=== PATIENT | male | born 1950 | race Caucasian/White ===

== ENCOUNTER 2018-05-29 09:52 | Inpatient (IN) | payer MEDICARE ==
[2018-05-29] MEDS ORDERED: SODIUM CHLORIDE 0.9% 500 ML 500 ML IV STA (10:04)
[2018-05-29] MEDS ORDERED: NALOXONE 0.4 MG/ML 1 ML VIAL IV PRN (10:17)
[2018-05-29] MEDS ORDERED: fentaNYL (PF) 50 MCG/ML 2 ML AMP ONE (10:19)
--- NOTE | 2018-05-29 10:22 | ED ---
General Adult HPI - General Chief complaint: Syncope Stated complaint: syncope, facial injury Time Seen by Provider: 05/29/18 10:04 Source: patient, RN notes reviewed Mode of arrival: wheelchair Limitations: no limitations - History of Present Illness Initial comments: 60-year-old male presenting with chest discomfort, syncopal episode with head trauma. Patient is noted to be bradycardic in triage, immediately brought into room for evaluation. Patient is diaphoretic, pale, mildly hypotensive. EKG reveals acute ST segment elevation PR. computer laboratory technician is activated. Patient does endorse some chest discomfort prior to syncopal episode. He is having minimal pain at the time my evaluation. Denies back pain. Denies abdominal pain. Denies nausea or vomiting. Denies focal numbness or weakness. He is alert and oriented 3. - Related Data Home Medications Medication Instructions Recorded Confirmed No Known Home Medications 11/14/14 05/29/18 Allergies Allergy/AdvReac Type Severity Reaction Status Date / Time No Known Allergies Allergy Verified 05/29/18 10:11 Review of Systems ROS Statement: Those systems with pertinent positive or pertinent negative responses have been documented in the HPI. ROS Other: All systems not noted in ROS Statement are negative. Past Medical History Past Medical History: No Reported History History of Any Multi-Drug Resistant Organisms: None Reported Past Surgical History: No Surgical Hx Reported, Orthopedic Surgery Additional Past Surgical History / Comment(s): L hand Past Psychological History: No Psychological Hx Reported Smoking Status: Former smoker Past Alcohol Use History: Occasional Past Drug Use History: None Reported General Exam Limitations: no limitations General appearance: alert, lethargic Head exam: Present: atraumatic, normocephalic, other (Facial abrasion just below the right eye) Eye exam: Present: normal appearance, PERRL, EOMI Respiratory exam: Present: normal lung sounds bilaterally. Absent: respiratory distress, wheezes Cardiovascular Exam: Present: normal rhythm, bradycardia GI/Abdominal exam: Present: soft. Absent: distended, tenderness, guarding Extremities exam: Present: normal inspection, normal capillary refill, other ( Distal pulses symmetric, faint) Neurological exam: Present: alert, oriented X3, CN II-XII intact. Absent: motor sensory deficit Psychiatric exam: Present: normal affect, normal mood Skin exam: Present: warm, intact, diaphoretic, pallor. Absent: cyanosis Course Vital Signs 05/29/18 09:54 Temperature 97.7 F Pulse Rate 46 L Respiratory 18 Rate Blood Pressure 134/84 O2 Sat by Pulse 96 Oximetry EKG Findings - EKG Comments: EKG Findings:: EKG: Sinus bradycardia, rate 42, LDH, ST segment elevation in the 1, aVL, and V3, V4, V5 and 6, diffuse ST segment depression, VT interval 180 , QRS duration 106, QTC 365, acute ST segment elevation PR. Medical Decision Making - Medical Decision Making 60-year-old male syncope, ST segment elevation PR. Patient given aspirin and heparin, fluid bolus, taken immediately to the [facility]. Dr. Giron is able to evaluate the patient emergency department. All imaging, and labs are pending. Disposition Clinical Impression: STEMI (ST elevation myocardial infarction) Disposition: ADMITTED IP TO THIS HOSP Condition: Serious Is patient prescribed a controlled substance at d/c from ED?: No Referrals: Dalton Sahu MD [Primary Care Provider] - 1-2 days Decision to Admit Reason: Admit from EC Decision Date: 05/29/18 Decision Time: 10:22
[2018-05-29 10:28] LABS: Basophils # (A) 0.1 k/uL (0-0.2); Basophils % (A) 1 %; Eosinophils # (A) 0.2 k/uL (0-0.7); Eosinophils % (A) 2 %; HCT 45.7 % (39.0-53.0); HGB 14.8 gm/dL (13.0-17.5); Lymphocytes # (A) 2.3 k/uL (1.0-4.8); Lymphocytes % (A) 23 %; MCH 31.2 pg (25.0-35.0); MCHC 32.5 g/dL (31.0-37.0); Mean Platelet Volume 7.4; Monocytes # (A) 0.7 k/uL (0-1.0); Monocytes % (A) 7 %; Neutrophils # (A) 6.7 k/uL (1.3-7.7); Neutrophils % (A) 66 %; Platelet Count 254 k/uL (150-450); RBC 4.76 m/uL (4.30-5.90); RDW 13.1 % (11.5-15.5); WBC 10.1 k/uL (3.8-10.6)
[2018-05-29 10:28] LABS: Glucose,Whole Blood 181 mg/dL (75-99)
[2018-05-29] MEDS ORDERED: fentaNYL (PF) 50 MCG/ML 2 ML AMP IVP ONE (10:30)
[2018-05-29] MEDS ORDERED: LIDOCAINE 1% INJ 10MG/ML (20 ML MDV) SQ ONE (10:33)
[2018-05-29] MEDS ORDERED: HEPARIN SODIUM,PORCINE 5,000 UNIT/ML 1 ML VIAL IV ONE (10:36)
[2018-05-29] MEDS ORDERED: ASPIRIN 81 MG PO STA (10:36)
--- NOTE | 2018-05-29 10:37 | CONS ---
CONSULTATION Mr. Baez is a 68-year-old male with no prior cardiac history who presented to the emergency room after syncopal episode and chest discomfort while exercising. He had a laceration on the face. His EKG revealed ST-segment elevation. The patient has no prior documented history of coronary artery disease. He has occasional episodes of chest discomfort at times, but has not been persistent and no recent syncope. He denies any significant dyspnea on exertion. No palpitation. No PND, orthopnea. No peripheral edema. His coronary risk factors are negative for smoking, hypertension, or diabetes. His lipid profile is not available to me. REVIEW OF SYSTEMS: RESPIRATORY SYSTEM: No recent wheezing. No cough. No history of obstructive lung disease. GI SYSTEM: No recent GI bleed. No peptic ulcer disease. SYSTEM: No dysuria or hematuria. NERVOUS SYSTEM: No stroke or seizure. PHYSICAL EXAMINATION: He is a 68-year-old male, alert, oriented, in no apparent distress. Heart rate in the 50s. Blood pressure 120/70, laceration noted on the right cheek. EYES: Sclerae nonicteric. NECK: Good upstroke, no bruit, no jugular venous distention. LUNGS: Clear to auscultation. HEART: Regular rate and rhythm, S1, S2. No S3, plus S4. Systolic murmur at the base. No diastolic murmur. ABDOMEN: Soft, nontender. EXTREMITIES: No edema. Intact pulses. EKG reveals sinus mechanism, rate [address]-segment elevation in lead 1 aVL and lead V4 and V5 with ST-segment depression in the inferior anterior leads consistent with anterolateral myocardial infarction. IMPRESSION: Status post acute anterolateral myocardial infarction with syncope, probably related either to bradycardia or ventricular tachycardia. RECOMMENDATION: I recommend proceeding with emergent cardiac catheterization. The rationale behind the procedures, risks and complication were discussed with the patient and his and are in full understanding and agreement. Thank you for this consult. Will follow with you. MMODL / IJN: [id number] /
[2018-05-29 10:38] LABS: ALT 36 U/L (21-72); AST 22 U/L (17-59); Alkaline Phosphatase 89 U/L (38-126); Anion Gap 10 mmol/L; Blood Urea Nitrogen 18 mg/dL (9-20); Calcium 10.1 mg/dL (8.4-10.2); Carbon Dioxide 26 mmol/L (22-30); Chloride 104 mmol/L (98-107); Glucose 183 mg/dL (74-99); Magnesium 1.7 mg/dL (1.6-2.3); Potassium 4.3 mmol/L (3.5-5.1); Sodium 140 mmol/L (137-145); Total Bilirubin 0.9 mg/dL (0.2-1.3)
[2018-05-29] MEDS ORDERED: TICAGRELOR 90 MG TAB ONE (10:39)
[2018-05-29 10:40] LABS: INR 0.9 (<1.2); Partial Thromboplastin Time 22.5 sec (22.0-30.0); Prothrombin Time 9.9 sec (9.0-12.0)
[2018-05-29] MEDS ORDERED: TICAGRELOR 90 MG TAB PO ONE (10:41)
[2018-05-29] MEDS ORDERED: BIVALIRUDIN BOLUS 250 MG/50 ML IV ONE (10:41)
[2018-05-29] MEDS ORDERED: IV FLUID CONTINUATION 1,000 ML IV ONE (10:43)
[2018-05-29] MEDS ORDERED: BIVALIRUDIN 250 MG in SODIUM CHLORIDE 0.9% 50 ML IV ONE ×2 (10:43→11:38)
[2018-05-29] MEDS ORDERED: IOPAMIDOL-370 100ML BTL INJ ONE ×3 (10:46→11:53)
[2018-05-29 10:56] LABS: Creatine Kinase 84 U/L (55-170)
[2018-05-29 11:09] LABS: Troponin I <0.012 ng/mL (0.000-0.034)
[2018-05-29] MEDS ORDERED: NITROGLYCERIN 1000MCG/10ML SYRINGE INTRACORON ONE (11:27)
[2018-05-29] MEDS ORDERED: SODIUM CHLORIDE 0.9% 1,000 ML IV ONE (12:10)
[2018-05-29] MEDS ORDERED: RX INFO: IV CONTRAST WAS GIVEN 1 EACH MISC MISCELLANE PRN (12:11)
[2018-05-29] MEDS ORDERED: ATROPINE SULFATE 0.1 MG/ML 10ML SYRINGE IV PRN (12:11)
[2018-05-29] MEDS ORDERED: MAG HYDROX/AL HYDROX/SIMETH 30 ML CUP PO PRN (12:11)
[2018-05-29] MEDS ORDERED: NITROGLYCERIN SL TABS 0.4 MG TAB SUBLINGUAL PRN (12:11)
[2018-05-29] MEDS ORDERED: ZOLPIDEM 5 MG TAB PO PRN (12:11)
[2018-05-29] MEDS ORDERED: SODIUM CHLORIDE 0.9% 1,000 ML IV SCH (12:15)
--- NOTE | 2018-05-29 12:28 | CC ---
CARDIAC CATHETERIZATION REPORT Mr. Baez is a 68-year-old male with no prior documented coronary artery disease who today while exercising, had a syncopal episode associated with chest discomfort, came into the emergency room and was found to have ST-segment elevation involving the anterolateral leads. In view of that, recommendation made regarding cardiac catheterization. The procedure, risks and complications were discussed with the patient who is in full understanding and agreement. PROCEDURE: Patient was brought to dental laboratory manager in the semi-sedated state after receiving fentanyl and Benadryl and achieving moderate conscious sedated state. Using Xylocaine anesthesia and Seldinger technique, a 6-Zambian sheath was introduced in the right femoral artery. Left heart catheterization was performed using 6-Zambian FR4 guiding catheter after cannulating the left main and obtaining images of the left coronary system, angioplasty and stenting of the left circumflex first obtuse marginal branch was done. Following that, images of the right coronary artery was performed using a 6-Zambian 4 bend right and left Cathryn catheter. Multiple images of the right coronary artery were performed. Following that, a 6-Zambian tight pigtail catheter was introduced in the left ventricle and pressures were calculated. Following that, catheter and sheath were removed. Hemostasis was obtained with deployment of an Angio-Seal. There was no immediate complication. FINDINGS: FLUOROSCOPY: There was severe calcification involving the coronary arteries. LEFT MAIN: This is a short-size vessel, bifurcating into left circumflex, left anterior descending artery. Left main coronary artery has no evidence of high-grade stenosis. LEFT ANTERIOR DESCENDING ARTERY: This is a calcified vessel, giving rise to a proximal diagonal branch. The left anterior descending artery and proximal segment has a calcified area of about 40% plaque. The rest of the vessel has no high-grade stenosis. LEFT CIRCUMFLEX: This is a nondominant vessel giving rise to 2 obtuse marginal branches. The first obtuse marginal branch is subtotally occluded with slow antegrade flow and the proximal left circumflex prior to the takeoff of the obtuse marginal branch has a 30% plaque. RIGHT CORONARY ARTERY: This is a large dominant vessel, bifurcating into PDA and posterolateral segment branches. The right coronary artery in mid segment has an 80% to 90% plaque. The rest of the vessel has diffuse intimal disease without any evidence of high-grade stenosis. LEFT VENTRICULOGRAM: Left ventriculogram was not performed. HEMODYNAMICS: There was no gradient across the aortic valve. The left ventricular end- diastolic pressure was 24 mmHg. CONCLUSION: 1. Calcified coronary arteries. 2. Subtotally occluded first obtuse marginal branch. 3. Critical stenosis in the mid right coronary artery. 4. Mild to moderate disease in the LAD. RECOMMENDATION: In view of finding anatomy, I recommend proceeding with angioplasty and stenting of the obtuse marginal branch of the right coronary artery. The procedures, risks and complication were discussed with the patient who is in full understanding and agreement. MMODL / IJN: [id number] /
--- NOTE | 2018-05-29 12:37 | LTR ---
DATE OF SERVICE: 05/29/2017 RE: Ryan Baez Dear Dr. Sahu; I had the pleasure to perform cardiac catheterization and coronary angioplasty and stenting on Mr. Baez at [facility] on May 29 and a full copy of the procedure note will be forwarded to you. In brief, he was found to have critical stenosis involving the first obtuse marginal branch and mid right coronary artery, underwent successful stenting of both vessels. I am hopeful that this procedure will stabilize his status and thank you again for allowing me to participate in this patient's care. Please feel free to call for any questions. Sincerely yours, Anjelica Giron MD MMKAYLAL / SMILEYN: [id number] /
--- NOTE | 2018-05-29 12:37 | PTCA ---
PERCUTANEOUSTRANS CORORONARY ANGIOGRAPHY Mr. Baez is a 68-year-old male with no prior documented history of coronary artery disease who had an episode of syncope while on the treadmill today with chest discomfort and ST-segment elevation involving the anterolateral leads. He underwent cardiac catheterization, was found to have a subtotally occluded first obtuse marginal branch. Recommendation was made regarding angioplasty and stenting. The procedure, risks and complication were discussed with the patient who is in full understanding and agreement. PROCEDURE: Using the 6-Occitan FR4 guiding catheter, attempt to advance the 0.014 balanced medium weight J-wire across the lesion were unsuccessful. That wire was removed and a whisper 0.014 J-wire was advanced and positioned distally. Attempt to advance a Trek 1.58 and 1.2 eight mm balloon were unsuccessful. The balloon was removed and attempt to advance a 1.5 x 6 mm Sprinter balloon were unsuccessful. The balloon was removed and a Fine Cross catheter was advanced across the lesion, then the wire was exchanged through the Fine Cross to a 0.014 mailman. Subsequently, the Fine Cross catheter was removed and a 1.2 x 8 mm Trek balloon was advanced and multiple inflations at 10 atmospheres were done. Following that, the balloon was removed and a 2.0 x 12 mm Trek balloon was advanced and one inflation at 10 atmospheres was done. Following that, the balloon was removed and a 2.5 x 18 mm Xience Arlene stent was deployed, postdilated at 16 atmospheres. After the last inflation, after appropriate wait, the balloon and the guidewire were withdrawn back in the guiding catheter. Images were obtained and repeated. Those images reveal stable successful stenting. At that point, the guiding catheter, the balloon and the guidewire were removed, subsequently and after obtaining images of the right coronary artery using a 6-Occitan FR4 guiding catheter, the right coronary ostium was cannulated and the BMW 0.014 J-wire was advanced and positioned distal right coronary artery. Subsequently, the 2.0 x 12 mm Trek balloon was advanced and one inflation at 10 atmospheres was done. Following that, the balloon was removed and a whisper 0.014 whisper J-wire was advanced and positioned next to the first one in a ross fashion. Subsequently a 2.5 x 18 mm Xience Arlene stent was advanced, deployed and post dilated at 16 atmospheres. After the last inflation, after appropriate wait, the balloon and the guidewire were withdrawn back in the guiding catheter. Images were obtained and repeated. Those images reveal stable successful stenting. At that point, the guiding catheter, the balloon and the guidewire were removed. Left ventricular end- diastolic pressure was calculated using the pigtail catheter. Subsequently, catheter and sheath were removed. Hemostasis was obtained with deployment of an Angio-Seal. There was no immediate complication. Patient is returned to his room in stable condition. Of note, the patient received Angiomax per protocol as well as oral loading dose of Brilinta. RESULTS: 1. Successful stenting of the first obtuse marginal branch with reduction of stenosis from 99% to 0%. 2. Successful stenting of the mid right coronary artery with reduction of stenosis from 85% to 0%. RECOMMENDATION: Patient will be continued on aspirin, Brilinta, RAJIV inhibitor, and statin. The importance of dual antiplatelet treatment were discussed with the patient and his family who are in full understanding and agreement. Duration of the procedure: 82 minutes. MMKAYLAL / SMILEYN: [id number] /
--- NOTE | 2018-05-29 14:05 | XR ---
EXAMINATION TYPE: XR chest 1V portable DATE OF EXAM: 05/29/2018 COMPARISON: Pain INDICATION: Pain TECHNIQUE: Frontal view of the chest is obtained. FINDINGS: The heart size is normal. The pulmonary vasculature is normal. The lungs are clear. EKG leads overlie the chest. IMPRESSION: 1. No acute pulmonary process.
--- NOTE | 2018-05-29 14:29 | CT ---
EXAMINATION TYPE: CT brain w con DATE OF EXAM: 05/29/2018 COMPARISON: HISTORY: syncope and fall today CT DLP: 862.5 mGycm Automated exposure control for dose reduction was used. CONTRAST: CT scan of the head is performed with IV Contrast, patient injected with 270 mL of Isovue 370. FINDINGS: There is no abnormal enhancing mass or midline shift identified. The ventricles and sulci are within normal limits in size. The globes are intact and the visualized sinuses are clear. IMPRESSION: Negative contrast enhanced head CT exam.
[2018-05-29 16:57] LABS: Glucose,Whole Blood 153 mg/dL (75-99)
--- NOTE | 2018-05-29 17:34 | P.HPIM ---
History of Present Illness H&P Date: 05/29/18 Chief Complaint: Chest pain This is a 68-year-old pleasant gentleman patient of Dr. Sahu. He has underlying history of renal calculi, less than by Dr. Sahu in June 2017, no prior history of CAD in the past hyperlipidemia, hyperglycemia, osteoarthritis, BPH without lower tract symptomatology, admitted to the emergency room secondary to chest discomfort while exercising. Patient also has syncopal event at that time, she says he sustained laceration of face, in emergency room his EKG showed ST segment elevation, patient denies any previous history of [place] in the past no history of seizures no history of syncope in the past. Patient has no PND or orthopnea no edema. In the emergency room EKG shows sinus mechanism heart rate [address] segment elevation in leads 1 and aVL and leads V4 V5 with ST segment depression in the inferior anterior leads consistent with anterolateral Myocardial faction. He was pale, diaphoretic, hypotensive, Patient was subsequently directed to the cardiac lab for emergent cardiac catheterization, Dr. Giron proceeded with the coronary intervention Findings of cardiac Shows occluded first obtuse marginal branch, requiring stenting of a 99% occluded first obtuse marginal branch with reduction of stenosis from 99% to 0, also successful stenting of the mid right coronary artery from 85% stenosis to 0 patient was placed on aspirin during that RAJIV inhibitor and statin patient currently is transferred to ICU procedure done on Dr. Giron Review of Systems Constitutional: Reports as per HPI, Denies anorexia, Denies chills, Denies chronic headaches, Denies chronic pain, Denies daytime sleepiness, Denies fatigue, Denies fever, Denies lethargy, Denies malaise, Denies night sweats, Denies poor appetite, Denies sweats, Denies weakness, Denies weight gain, Denies weight loss Ears, nose, mouth and throat: Reports as per HPI, Denies ant. neck pain, Denies bleeding gums, Denies dental pain, Denies dysphagia, Denies epistaxis, Denies headache, Denies hoarseness, Denies mouth pain, Denies nasal congestion, Denies nasal discharge, Denies neck fullness/pressure, Denies neck lump, Denies nose pain, Denies odynophagia, Denies post-nasal drip, Denies sinus pain, Denies sinus pressure, Denies swelling in mouth, Denies swelling in throat, Denies sore throat, Denies vertigo, Denies voice changes Cardiovascular: Reports as per HPI, Reports chest pain, Reports syncope Respiratory: Reports as per HPI, Denies congestion, Denies cough, Denies cough with sputum, Denies dyspnea, Denies excessive sputum, Denies hemoptysis, Denies home oxygen, Denies pain, Denies pain on inspiration, Denies pleurisy, Denies respiratory infections, Denies sleep apnea, Denies snoring, Denies wheezing Gastrointestinal: Reports as per HPI, Denies abdominal pain, Denies belching, Denies bloating, Denies BRBPR, Denies change in bowel habits, Denies coffee ground emesis, Denies constipation, Denies diarrhea, Denies dyspepsia, Denies early satiety, Denies excessive gas, Denies heartburn, Denies hematemesis, Denies hematochezia, Denies indigestion, Denies jaundice, Denies lactose intolerance, Denies loss of appetite, Denies melena, Denies nausea, Denies vomiting Genitourinary: Reports as per HPI, Denies decreased libido, Denies difficulties fathering child, Denies discharge, Denies dysuria, Denies erectile dysfunction, Denies flank pain, Denies genital pain, Denies genital sores, Denies hematuria, Denies impotence, Denies incontinence, Denies kidney stones, Denies nocturia, Denies polyuria, Denies testicular lump, Denies testicular pain, Denies urinary frequency, Denies urinary hesitancy, Denies urinary retention Musculoskeletal: Reports as per HPI, Denies arm numbness/tingling, Denies atrophy, Denies fractures, Denies frequent falls, Denies gait dysfunction, Denies hot joints, Denies leg numbness/tingling, Denies limitation of motion, Denies loss of height, Denies low back pain, Denies morning stiffness, Denies muscle cramps, Denies muscle weakness, Denies myalgias, Denies neck pain, Denies neck stiffness, Denies prior amputations, Denies redness of joints, Denies shooting arm pain, Denies shooting leg pain Integumentary: Reports as per HPI, Denies acne, Denies boils, Denies brittle nails, Denies change in hair/nails, Denies color changes, Denies darkening of skin, Denies depigmentation, Denies dryness, Denies foot/leg ulcers, Denies growths, Denies hirsutism, Denies lesions, Denies onychomycosis, Denies pruritus , Denies rash, Denies sores, Denies striae, Denies unusual bruising, Denies wounds Neurological: Reports as per HPI, Denies aphasia, Denies ataxia, Denies balance difficulties, Denies burning pain, Denies change in mentation, Denies change in smell/taste, Denies change in speech, Denies confusion, Denies convulsions, Denies double vision, Denies gait dysfunction, Denies head injury, Denies headaches, Denies hearing difficulties, Denies lack of coordination, Denies loss of vision, Denies memory loss, Denies migraines, Denies motor disturbance, Denies numbness, Denies paralysis, Denies paresthesias, Denies seizures, Denies sensory deficit, Denies spasticity, Denies syncope, Denies tic, Denies tingling , Denies transient paralysis, Denies tremors, Denies vertigo, Denies weakness, Denies visual changes Psychiatric: Reports as per HPI, Denies anhedonia, Denies anxiety, Denies anxiety attacks, Denies change in appetite, Denies change in libido, Denies change in sleep habits, Denies confusion, Denies depression, Denies difficulty concentrating, Denies disorientation, Denies hallucinations, Denies hopelessness , Denies hypersomnia, Denies insomnia, Denies irritability, Denies memory loss, Denies mood swings, Denies paranoia, Denies sadness/tearfulness, Denies sleep disturbances, Denies suicidal ideation Endocrine: Reports as per HPI, Denies cold intolerance, Denies deepening of the voice, Denies excessive sweating, Denies excessive thirst, Denies fatigue, Denies flushing, Denies heat intolerance, Denies high blood sugars, Denies increase in ring/shoe/hat size, Denies low blood sugars, Denies nocturia, Denies palpitations, Denies polydipsia, Denies polyphagia, Denies polyuria, Denies proptosis, Denies recent glucocorticoid use, Denies thyroid mass, Denies weight change Hematologic/Lymphatic: Reports as per HPI, Denies easy bleeding, Denies easy bruising, Denies lymphadenopathy, Denies lymphedema, Denies thrombophilia Allergic/Immunologic: Reports as per HPI Past Medical History Past Medical History: No Reported History Additional Past Medical History / Comment(s): nephrolithiasis bph, elevated bp without htn, hyperglycemia History of Any Multi-Drug Resistant Organisms: None Reported Past Surgical History: No Surgical Hx Reported, Orthopedic Surgery Additional Past Surgical History / Comment(s): L hand Past Psychological History: No Psychological Hx Reported Smoking Status: Former smoker Past Alcohol Use History: Occasional Past Drug Use History: None Reported - Past Family History Father Additional Family Medical History / Comment(s): Cabg Mother Family Medical History: Diabetes Mellitus Brother(s) Family Medical History: Coronary Artery Disease (CAD) Additional Family Medical History / Comment(s): heart stent Medications and Allergies Home Medications Medication Instructions Recorded Confirmed Type No Known Home Medications 11/14/14 05/29/18 History Allergies Allergy/AdvReac Type Severity Reaction Status Date / Time No Known Allergies Allergy Verified 05/29/18 10:11 Physical Exam Vitals: Vital Signs Temp Pulse Pulse Resp BP BP Pulse Ox 05/29/18 16:45 84 14 138/79 96 05/29/18 16:00 82 19 143/79 95 05/29/18 15:11 65 17 150/83 05/29/18 14:41 66 16 150/84 96 05/29/18 14:15 73 16 150/83 05/29/18 13:33 73 16 168/94 05/29/18 13:00 75 18 152/89 97 05/29/18 12:45 65 18 148/78 97 05/29/18 12:30 60 16 152/75 97 05/29/18 12:15 58 L 18 167/81 97 05/29/18 09:54 97.7 F 46 L 18 134/84 96 Intake and Output 05/29/18 05/29/18 05/29/18 06:59 14:59 22:59 Intake Total 746.1 100 Output Total 400 Balance 346.1 100 Intake: IV 746.1 Intake, IV Titration 100 Amount Sodium Chloride 0.9% 1, 100 000 ml @ 100 mls/hr IV . Q10H [facility] Rx#:[id number] Output: Urine 400 Other: Weight 81.647 kg - Constitutional General appearance: average body habitus, cooperative, no acute distress - EENT Eyes: anicteric sclerae, EOMI, dentition normal, normal appearance ENT: hearing grossly normal, NA/AT, normal oropharynx - Neck Neck: normal ROM - Respiratory Respiratory: bilateral: CTA, negative: diminished, dullness, rales - Cardiovascular Rhythm: regular Heart sounds: normal: S1, S2 Abnormal Heart Sounds: no systolic murmur, no diastolic murmur, no rub, no S3 Gallop, no S4 Gallop, no click, no other - Gastrointestinal General gastrointestinal: normal bowel sounds, soft - Integumentary Integumentary: normal, normal turgor - Neurologic Neurologic: CNII-XII intact - Musculoskeletal Musculoskeletal: gait normal, generalized weakness, strength equal bilaterally - Psychiatric Psychiatric: A&O x's 3, appropriate affect, intact judgment & insight Results CBC & Chem 7: 05/30/18 04:12 05/30/18 04:12 Labs: Abnormal Lab Results - Last 24 Hours (Table) 05/29/18 05/29/18 05/29/18 Range/Units 10:10 10:12 16:45 Glucose 183 H (74-99) mg/dL POC Glucose (mg/dL) 181 H 153 H (75-99) mg/dL Laboratory Results WBC 10.1 k/uL (3.8-10.6) 05/29/18 10:10 RBC 4.76 m/uL (4.30-5.90) 05/29/18 10:10 Hgb 14.8 gm/dL (13.0-17.5) 05/29/18 10:10 Hct 45.7 % (39.0-53.0) 05/29/18 10:10 MCV 96.0 fL (80.0-100.0) 05/29/18 10:10 MCH 31.2 pg (25.0-35.0) 05/29/18 10:10 MCHC 32.5 g/dL (31.0-37.0) 05/29/18 10:10 RDW 13.1 % (11.5-15.5) 05/29/18 10:10 Plt Count 254 k/uL (150-450) 05/29/18 10:10 Neutrophils % 66 % 05/29/18 10:10 Lymphocytes % 23 % 05/29/18 10:10 Monocytes % 7 % 05/29/18 10:10 Eosinophils % 2 % 05/29/18 10:10 Basophils % 1 % 05/29/18 10:10 Neutrophils # 6.7 k/uL (1.3-7.7) 05/29/18 10:10 Lymphocytes # 2.3 k/uL (1.0-4.8) 05/29/18 10:10 Monocytes # 0.7 k/uL (0-1.0) 05/29/18 10:10 Eosinophils # 0.2 k/uL (0-0.7) 05/29/18 10:10 Basophils # 0.1 k/uL (0-0.2) 05/29/18 10:10 PT 9.9 sec (9.0-12.0) 05/29/18 10:10 INR 0.9 (<1.2) 05/29/18 10:10 APTT 22.5 sec (22.0-30.0) 05/29/18 10:10 Sodium 140 mmol/L (137-145) 05/29/18 10:10 Potassium 4.3 mmol/L (3.5-5.1) 05/29/18 10:10 Chloride 104 mmol/L (98-107) 05/29/18 10:10 Carbon Dioxide 26 mmol/L (22-30) 05/29/18 10:10 Anion Gap 10 mmol/L 05/29/18 10:10 BUN 18 mg/dL (9-20) 05/29/18 10:10 Creatinine 0.96 mg/dL (0.66-1.25) 05/29/18 10:10 Est GFR (CKD-EPI)AfAm >90 (>60 ml/min/1.73 sqM) 05/29/18 10:10 Est GFR (CKD-EPI)NonAf 82 (>60 ml/min/1.73 sqM) 05/29/18 10:10 Glucose 183 mg/dL (74-99) H 05/29/18 10:10 POC Glucose (mg/dL) 153 mg/dL (75-99) H 05/29/18 16:45 POC Glu [employer] ID 05/29/18 16:45 Calcium 10.1 mg/dL (8.4-10.2) 05/29/18 10:10 Magnesium 1.7 mg/dL (1.6-2.3) 05/29/18 10:10 Total Bilirubin 0.9 mg/dL (0.2-1.3) 05/29/18 10:10 AST 22 U/L (17-59) 05/29/18 10:10 ALT 36 U/L (21-72) 05/29/18 10:10 Alkaline Phosphatase 89 U/L (38-126) 05/29/18 10:10 Total Creatine Kinase 84 U/L (55-170) 05/29/18 10:10 CK-MB (CK-2) 1.0 ng/mL (0.0-2.4) 05/29/18 10:10 CK-MB (CK-2) Rel Index 1.2 05/29/18 10:10 Troponin I <0.012 ng/mL (0.000-0.034) 05/29/18 10:10 Total Protein 7.0 g/dL (6.3-8.2) 05/29/18 10:10 Albumin 4.0 g/dL (3.5-5.0) 05/29/18 10:10 Thrombosis Risk Factor Assmnt - DVT/VTE Prophylaxis DVT/VTE Prophylaxis: Pharmacologic Prophylaxis ordered - Choose All That Apply Each Factor Represents 1 point: Acute [place] Each Risk Factor Represents 2 Points: Age 61-74 years Thrombosis Risk Factor Assessment Total Risk Factor Score: 3 Thrombosis Risk Factor Assessment Level: Moderate Risk Assessment and Plan Plan: 1. Acute STEMI involving anterolateral leads with occluded mid RCA, 85% and first obtuse marginal branch 99% with successful stenting on both vessels, patient is currently on aspirin. Intact, statin and RAJIV inhibitor, patient has to be on dual antiplatelets and risk reduction to include hyperglycemia that was noted 2. Hyperglycemia, possibly with diabetes or new-onset diabetes, unrecognized at this time, hemoglobin A1c to be obtained, Accu-Cheks before meals and at bedtime with coverage sliding scale 3. Hypertension, syncopal 2.5 mg twice a day initiated 4. BPH without lower tract symptomatology, monitor for urinary retention 5. History of nephrolithiasis asymptomatic 6. Hyperlipidemia started on Lipitor 80, lipid panels to be done 7. Laceration of face secondary to syncope, facial contusion, Dr. you that has been consulted for surgical repair of these 8. Syncope most likely secondary to cardiac arrhythmia, patient currently is monitored, secondary arrhythmia is considered, mentation and electrolytes to be monitored closely GI prophylaxis Pepcid 20 mg twice a day DVT prophylaxis Lovenox 40 daily
[2018-05-29] MEDS: FAMOTIDINE 20 MG TAB PO SCH (22:01)
[2018-05-29] MEDS: ATORVASTATIN 80 MG TAB PO SCH (22:01)
[2018-05-29] MEDS: TICAGRELOR 90 MG TAB PO SCH (22:01)
[2018-05-29] MEDS: LISINOPRIL 2.5 MG TAB PO SCH (22:02)
[2018-05-30 05:06] LABS: Basophils % (A) 0 %; Eosinophils # (A) 0.1 k/uL (0-0.7); Eosinophils % (A) 1 %; HCT 42.3 % (39.0-53.0); HGB 14.4 gm/dL (13.0-17.5); Lymphocytes # (A) 1.6 k/uL (1.0-4.8); Lymphocytes % (A) 14 %; MCHC 33.9 g/dL (31.0-37.0); MCV 97.2 fL (80.0-100.0); Mean Platelet Volume 7.4; Monocytes # (A) 0.7 k/uL (0-1.0); Monocytes % (A) 6 %; Neutrophils % (A) 78 %; Platelet Count 206 k/uL (150-450); RBC 4.35 m/uL (4.30-5.90); RDW 13.4 % (11.5-15.5); WBC 11.5 k/uL (3.8-10.6)
[2018-05-30 05:30] LABS: Anion Gap 8 mmol/L; Blood Urea Nitrogen 15 mg/dL (9-20); Calcium 8.9 mg/dL (8.4-10.2); Carbon Dioxide 23 mmol/L (22-30); Chloride 108 mmol/L (98-107); Cholesterol 150 mg/dL (<200); Glucose 121 mg/dL (74-99); HDL Cholesterol 28 mg/dL (40-60); LDL Cholesterol,Calculated 94 mg/dL (0-99); Magnesium 1.7 mg/dL (1.6-2.3); Phosphorus 3.4 mg/dL (2.5-4.5); Sodium 139 mmol/L (137-145); Triglycerides 140 mg/dL (<150)
[2018-05-30] MEDS ORDERED: Magnesium Replacement Protocol 1 EACH MISC MISCELLANE PRN (05:40)
[2018-05-30] MEDS: MAGNESIUM SULFATE-D5W PMX 1 GM in DEXTROSE/WATER 1 100ML.BAG IVPB SCH ×2 (06:11→08:19)
[2018-05-30] MEDS: ASPIRIN 81 MG PO SCH (08:20)
[2018-05-30] MEDS: TICAGRELOR 90 MG TAB PO SCH ×2 (08:20→20:37)
[2018-05-30] MEDS: ENOXAPARIN 40 MG/0.4 ML SYRINGE SQ SCH (08:20)
[2018-05-30] MEDS: FAMOTIDINE 20 MG TAB PO SCH ×2 (08:20→20:37)
[2018-05-30] MEDS: LISINOPRIL 2.5 MG TAB PO SCH ×2 (08:20→20:37)
[2018-05-30] MEDS: METOPROLOL TARTRATE 25 MG TAB PO SCH ×2 (08:20→20:37)
--- NOTE | 2018-05-30 08:21 | XR ---
EXAMINATION TYPE: XR chest 1V DATE OF EXAM: 05/30/2018 COMPARISON: 05/29/2018 HISTORY: 68-year-old male ICU follow-up TECHNIQUE: Single frontal view of the chest is obtained. FINDINGS: Heart upper limits of normal in size. Mild interstitial prominence has an overall chronic appearance. Mild elongation of the thoracic aorta. No tank consolidation or pleural effusion seen. IMPRESSION: Borderline heart size. No definite acute process.
[2018-05-30] MEDS: SENNOSIDES 8.6 MG TAB PO SCH (08:25)
--- NOTE | 2018-05-30 08:39 | PN ---
PROGRESS NOTE Mr. Baez is a 68-year-old male who presented with an acute myocardial infarction and syncopal episode. He underwent cardiac catheterization, was found to have critical stenosis involving the mid right coronary artery and the first obtuse marginal branch, underwent stenting of both vessels. He is doing well this morning. He is denying any chest discomfort. His breathing has been stable. He denies any dizziness or palpitation. He denies any nausea. Hemodynamically, he is stable. He continues to be at this time on aspirin once a day, Brilinta 90 mg twice a day, Lipitor 80 mg daily, lisinopril 2.5 mg twice a day. PHYSICAL EXAMINATION: Blood pressure 132/70 with the heart rate in the 80s. LUNGS: Clear. HEART: Regular rate and rhythm. S1, S2. No S3. No rub. ABDOMEN: Soft nontender. EXTREMITIES: No edema. RIGHT GROIN: No hematoma. LAB DATA: Lab data revealed BUN and creatinine 15 and 0.7, potassium 4.0. Hemoglobin of 14.4. His peak troponin is 1.49. His LDL is 92. His EKG revealed a sinus mechanism with a normal axis and intervals and minor nonspecific ST-T wave changes. IMPRESSION: 1. Status post ST-segment elevation myocardial infarction with stenting of the right coronary artery and the left circumflex. The patient's troponin is minimally elevated. The culprit lesion yesterday, was not clear. His EKG changes were more on the anterolateral leads. 2. Syncopal episode, could be related to the acute event and an episode of ventricular tachycardia. 3. Calcified coronary arteries. RECOMMENDATION: I will obtain an echocardiogram with Doppler today, add beta rodo, increase his level activity. Depending on the results of his echocardiogram, further recommendation will be made. MMODL / IJN: [id number] /
[2018-05-30 09:43] VITALS: BMI 29.9
--- NOTE | 2018-05-30 10:25 | ECHOF ---
Referral Reason:ut MEASUREMENTS -------- HEIGHT: 170.2 cm WEIGHT: 86.2 kg BP: 136/78 IVSd: 1.3 cm (0.6 - 1.1) LVIDd: 3.6 cm (3.9 - 5.3) LVPWd: 1.3 cm (0.6 - 1.1) IVSs: 1.7 cm LVIDs: 2.0 cm LVPWs: 1.6 cm LAESV Index (A-L): 12.70 ml/m Ao Diam: 3.0 cm (2.0 - 3.7) AV Cusp: 1.9 cm (1.5 - 2.6) LA Diam: 3.5 cm (2.7 - 3.8) MV EXCURSION: 16.659 mm (> 18.000) MV EF SLOPE: 52 mm/s (70 - 150) EPSS: 1.2 cm MV E Geovani: 0.73 m/s MV DecT: 243 ms MV A Geovani: 0.68 m/s MV E/A Ratio: 1.06 RAP: 5.00 mmHg RVSP: 14.00 mmHg FINDINGS -------- Sinus rhythm. This was a technically good study. The left ventricular size is normal. There is mild concentric left ventricular hypertrophy. Overa ll left ventricular systolic function is low-normal with, an EF between 50 - 55 %. Mis septum appea rs hypokinetic. The right ventricle is normal in size and function. The left atrium is normal in size. The right atrium is normal in size. The aortic valve is trileaflet, and appears structurally normal. No aortic stenosis or regurgitation. There is trace mitral regurgitation. Trace tricuspid regurgitation present. The right ventricular systolic pressure, as measured by Dopp ler, is 14.00mmHg. Pulmonic valve appears structurally normal. The aortic root size is normal. IVC Not well visulized. The pericardium is normal. CONCLUSIONS -------- 1. Sinus rhythm. 2. This was a technically good study. 3. The left ventricular size is normal. 4. There is mild concentric left ventricular hypertrophy. 5. Overall left ventricular systolic function is low-normal with, an EF between 50 - 55 %. 6. Mis septum appears hypokinetic. 7. The right ventricle is normal in size and function. 8. The left atrium is normal in size. 9. The right atrium is normal in size. 10. The aortic valve is trileaflet, and appears structurally normal. No aortic stenosis or regurgitat ion. 11. There is trace mitral regurgitation. 12. Trace tricuspid regurgitation present. 13. The right ventricular systolic pressure, as measured by Doppler, is 14.00mmHg. 14. Pulmonic valve appears structurally normal. 15. The aortic root size is normal. 16. IVC Not well visulized. 17. The pericardium is normal. [employer] SUPERVISOR: Faina De Leon RDCS
--- NOTE | 2018-05-30 13:22 | P.PN ---
Subjective Progress Note Date: 05/30/18 This is a 68-year-old pleasant gentleman patient of Dr. Sahu. He has underlying history of renal calculi, less than by Dr. Sahu in June 2017, no prior history of CAD in the past hyperlipidemia, hyperglycemia, osteoarthritis, BPH without lower tract symptomatology, admitted to the emergency room secondary to chest discomfort while exercising. Patient also has syncopal event at that time, she says he sustained laceration of face, in emergency room his EKG showed ST segment elevation, patient denies any previous history of [place] in the past no history of seizures no history of syncope in the past. Patient has no PND or orthopnea no edema. In the emergency room EKG shows sinus mechanism heart rate [address] segment elevation in leads 1 and aVL and leads V4 V5 with ST segment depression in the inferior anterior leads consistent with anterolateral Myocardial faction. He was pale, diaphoretic, hypotensive, Patient was subsequently directed to the cardiac lab for emergent cardiac catheterization, Dr. Giron proceeded with the coronary intervention Findings of cardiac Shows occluded first obtuse marginal branch, requiring stenting of a 99% occluded first obtuse marginal branch with reduction of stenosis from 99% to 0, also successful stenting of the mid right coronary artery from 85% stenosis to 0 patient was placed on aspirin during that RAJIV inhibitor and statin patient currently is transferred to ICU procedure done on Dr. Giron 05/30: Repeat laboratory shows a hemoglobin of 14.4, white count is 11.5, creatinine 0.61, blood sugars 121-181. Triglycerides 140, cholesterol 150, LDL 94 and HDL 28. Brilinta coverage is being checked by community case manager. Patient denies having any chest pain or shortness of breath. Discussed following a diabetic diet which patient is willing to do. Metformin will be started tomorrow evening. Patient was seen by Dr. Hernandez and Steri-Strips applied to the cheek avulsion was no plan for suturing. Review Of Systems: Constitutional: No fever, no chills, no night sweats. No weight change. No weakness, fatigue or lethargy. No daytime sleepiness. EENT: No headache. No blurred vision or double vision, no loss of vision. No loss of Hearing, no ringing in the ears, no dizziness. No nasal drainage or congestion. No epistaxis. No sore throat. Lungs: No shortness of breath, cough, no sputum production. No wheezing. Cardiovascular: No chest pain, no lower extremity edema. No palpitations. No paroxysmal nocturnal dyspnea. No orthopnea. No lightheadedness or dizziness. No syncopal episodes. Abdominal: No abdominal pain. No nausea, vomiting. No diarrhea. No constipation. No bloody or tarry stools.. No loss of appetite. Genitourinary: No dysuria, increased frequency, urgency. No urinary retention. Musculoskeletal: No myalgias. No muscle weakness, no gait dysfunction, no frequent falls. No back pain. No neck pain. Integumentary: No wounds, no lesions. No rash or pruritus. No unusual bruising. No change in hair or nails. Neurologic: No aphasia. No facial droop. No change in mentation. No head injury. No headache. No paralysis. No paresthesia. Psychiatric: No depression. No anxiety. No mood swings. Endocrine: Reports abnormal blood sugars. No weight change. No excessive sweating or thirst. No cold intolerance. No weight change. Objective - Vital Signs Vital signs: Vital Signs Temp 98.5 F 05/30/18 04:00 Pulse 86 05/30/18 07:00 Resp 25 H 05/30/18 07:00 BP 132/77 05/30/18 07:00 Pulse Ox 94 L 05/30/18 07:00 Intake & Output 05/29/18 05/30/18 05/30/18 18:59 06:59 18:59 Intake Total 1046.1 800 Output Total 750 1250 500 Balance 296.1 -450 -500 Weight 81.647 kg 86.6 kg Intake: IV 746.1 700 Magnesium Sulfate-D5w Pmx 100 1 gm In Dextrose/Water 1 100ml.bag @ 100 mls/hr IVPB Q1H JOE Rx#: [id number] Sodium Chloride 0.9% 1, 600 000 ml @ 100 mls/hr IV . Q10H JOE Rx#:[id number] Intake, IV Titration 300 100 Amount Sodium Chloride 0.9% 1, 300 100 000 ml @ 100 mls/hr IV . Q10H JOE Rx#:[id number] Output: Urine 750 1250 500 Other: Voiding Method Urinal Urinal - Exam General appearance: average body habitus, cooperative, no acute distress, resting in a recliner. His is at bedside. - EENT Eyes: anicteric sclerae, EOMI, dentition normal, normal appearance ENT: hearing grossly normal, NA/AT, normal oropharynx - Neck Neck: normal ROM - Respiratory Respiratory: bilateral: CTA, negative: diminished, dullness, rales - Cardiovascular Rhythm: regular Heart sounds: normal: S1, S2 Abnormal Heart Sounds: no systolic murmur, no diastolic murmur, no rub, no S3 Gallop, no S4 Gallop, no click, no other - Gastrointestinal General gastrointestinal: normal bowel sounds, soft - Integumentary Integumentary: normal, normal turgor - Neurologic Neurologic: CNII-XII intact - Musculoskeletal Musculoskeletal: gait normal, generalized weakness, strength equal bilaterally - Psychiatric Psychiatric: A&O x's 3, appropriate affect, intact judgment & insight - Labs CBC & Chem 7: 05/30/18 04:12 05/30/18 04:12 Labs: Abnormal Lab Results - Last 24 Hours (Table) 05/29/18 05/29/18 05/29/18 Range/Units 10:10 10:12 16:12 WBC (3.8-10.6) k/uL Neutrophils # (1.3-7.7) k/uL Chloride (98-107) mmol/L Glucose 183 H (74-99) mg/dL POC Glucose (mg/dL) 181 H (75-99) mg/dL Troponin I 0.513 H* (0.000-0.034) ng/mL HDL Cholesterol (40-60) mg/dL 05/29/18 05/29/18 05/30/18 Range/Units 16:45 22:05 04:12 WBC (3.8-10.6) k/uL Neutrophils # (1.3-7.7) k/uL Chloride 108 H (98-107) mmol/L Glucose 121 H (74-99) mg/dL POC Glucose (mg/dL) 153 H (75-99) mg/dL Troponin I 1.490 H* (0.000-0.034) ng/mL HDL Cholesterol 28 L (40-60) mg/dL 05/30/18 Range/Units 04:12 WBC 11.5 H (3.8-10.6) k/uL Neutrophils # 9.0 H (1.3-7.7) k/uL Chloride (98-107) mmol/L Glucose (74-99) mg/dL POC Glucose (mg/dL) (75-99) mg/dL Troponin I (0.000-0.034) ng/mL HDL Cholesterol (40-60) mg/dL Assessment and Plan Plan: 1. Acute STEMI involving anterolateral leads with occluded mid RCA, 85% and first obtuse marginal branch 99% with successful stenting on both vessels, patient is currently on aspirin, statin and RAJIV inhibitor, Lopressor, Brilinta. 2. Hyperglycemia, possibly with diabetes or new-onset diabetes, unrecognized at this time, hemoglobin A1c to be obtained, Accu-Cheks before meals and at bedtime with coverage sliding scale. Metformin 850 mg at supper to start tomorrow. Dietitian consult for diabetic education. 3. Hypertension, syncopal 2.5 mg twice a day initiated 4. BPH without lower tract symptomatology, monitor for urinary retention 5. History of nephrolithiasis asymptomatic 6. Hyperlipidemia started on Lipitor 80, lipid panels to be done 7. Laceration of face secondary to syncope, facial contusion, Dr. Hernandez, Steri- Strips. 8. Syncope most likely secondary to cardiac arrhythmia, patient currently is monitored, secondary arrhythmia is considered, mentation and electrolytes to be monitored closely GI prophylaxis Pepcid 20 mg twice a day DVT prophylaxis Lovenox 40 daily Discharge plan: Most likely home tomorrow. Impression and plan of care have been directed as dictated by the signing physician. Luisa Bolaños nurse practitioner acting as scribe for signing physician.
--- NOTE | 2018-05-30 14:34 | P.GSCN ---
History of Present Illness Consult date: 05/30/18 History of present illness: This is a 68-year-old pleasant gentleman that presented to the emergency department after having a syncopal event while on a home exercise machine. At that time, he sustained a laceration to the right side of his face and presented to the emergency Department secondary to his injury. On workup in the emergency department, the patient was noted to have a myocardial infarction and was emergently taken for a cardiac catheterization. The patient has been doing well since the procedure. Surgery was consulted secondary to a laceration on his face and possibility of repair. The patient denies any pain to the side of his face and there currently is no active bleeding. He has no additional complaints at this time. He is currently admitted to the intensive care unit for intensive care after catheterization. Review of Systems All systems: negative Past Medical History Past Medical History: No Reported History Additional Past Medical History / Comment(s): nephrolithiasis bph, elevated bp without htn, hyperglycemia History of Any Multi-Drug Resistant Organisms: None Reported Past Surgical History: No Surgical Hx Reported, Orthopedic Surgery Additional Past Surgical History / Comment(s): L hand Past Anesthesia/Blood Transfusion Reactions: No Reported Reaction Past Psychological History: No Psychological Hx Reported Smoking Status: Former smoker Past Alcohol Use History: Occasional Past Drug Use History: None Reported - Past Family History Father Additional Family Medical History / Comment(s): Cabg Mother Family Medical History: Diabetes Mellitus Brother(s) Family Medical History: Coronary Artery Disease (CAD) Additional Family Medical History / Comment(s): heart stent Medications and Allergies Home Medications Medication Instructions Recorded Confirmed Type No Known Home Medications 11/14/14 05/29/18 History Allergies Allergy/AdvReac Type Severity Reaction Status Date / Time No Known Allergies Allergy Verified 05/29/18 10:11 Surgical - Exam Osteopathic Statement: *. No significant issues noted on an osteopathic structural exam other than those noted in the History and Physical/Consult. Vital Signs Temp Pulse Resp BP Pulse Ox 97.7 F 46 L 18 134/84 96 05/29/18 09:54 05/29/18 09:54 05/29/18 09:54 05/29/18 09:54 05/29/18 09:54 - General well developed, well nourished - Eyes PERRL, normal ocular movement - ENT Small laceration lateral to the right nare, no active bleeding normal pinna, normal mucosa, no hearing loss - Neck trachea midline - Respiratory normal respiratory effort - Abdomen Soft, nontender, nondistended, no rebound, no guarding - Integumentary Laceration over the right cheek that appears to be a small skin avulsion - Psychiatric oriented to time, oriented to person, oriented to place Results - Labs 05/30/18 04:12 05/30/18 04:12 Abnormal Lab Results - Last 24 Hours (Table) 05/29/18 05/29/18 05/29/18 Range/Units 16:12 16:45 22:05 WBC (3.8-10.6) k/uL Neutrophils # (1.3-7.7) k/uL Chloride (98-107) mmol/L Glucose (74-99) mg/dL POC Glucose (mg/dL) 153 H (75-99) mg/dL Troponin I 0.513 H* 1.490 H* (0.000-0.034) ng/mL HDL Cholesterol (40-60) mg/dL 05/30/18 05/30/18 Range/Units 04:12 04:12 WBC 11.5 H (3.8-10.6) k/uL Neutrophils # 9.0 H (1.3-7.7) k/uL Chloride 108 H (98-107) mmol/L Glucose 121 H (74-99) mg/dL POC Glucose (mg/dL) (75-99) mg/dL Troponin I (0.000-0.034) ng/mL HDL Cholesterol 28 L (40-60) mg/dL Diabetes panel 05/30/18 Range/Units 04:12 Sodium 139 (137-145) mmol/L Potassium 4.0 (3.5-5.1) mmol/L Chloride 108 H (98-107) mmol/L Carbon Dioxide 23 (22-30) mmol/L BUN 15 (9-20) mg/dL Creatinine 0.71 (0.66-1.25) mg/dL Glucose 121 H (74-99) mg/dL Calcium 8.9 (8.4-10.2) mg/dL Triglycerides 140 (<150) mg/dL HDL Cholesterol 28 L (40-60) mg/dL Calcium panel 05/30/18 Range/Units 04:12 Calcium 8.9 (8.4-10.2) mg/dL Phosphorus 3.4 (2.5-4.5) mg/dL Pituitary panel 05/30/18 Range/Units 04:12 Sodium 139 (137-145) mmol/L Potassium 4.0 (3.5-5.1) mmol/L Chloride 108 H (98-107) mmol/L Carbon Dioxide 23 (22-30) mmol/L BUN 15 (9-20) mg/dL Creatinine 0.71 (0.66-1.25) mg/dL Glucose 121 H (74-99) mg/dL Calcium 8.9 (8.4-10.2) mg/dL Adrenal panel 05/30/18 Range/Units 04:12 Sodium 139 (137-145) mmol/L Potassium 4.0 (3.5-5.1) mmol/L Chloride 108 H (98-107) mmol/L Carbon Dioxide 23 (22-30) mmol/L BUN 15 (9-20) mg/dL Creatinine 0.71 (0.66-1.25) mg/dL Glucose 121 H (74-99) mg/dL Calcium 8.9 (8.4-10.2) mg/dL Assessment and Plan Plan: 68-year-old male status post cardiac catheterization for STEMI with facial laceration - Laceration is approximately 1 x 1 cm and is noted to be triangular in shape. This does appear to be a small skin avulsion. At this time, it has been approximately 24 hours since the injury and the skin is still viable. I did discuss the case with the patient and the patient's and there is a possibility of losing viability of this area of skin. If that is the case, a debridement would be necessary, however at this time with viability, Steri- Strips are in place. - Will continue to follow, no plan for surgical intervention at this time. If skin loses viability will need to reevaluate for any debridement
[2018-05-30 15:27] LABS: Hemoglobin A1C 7.7 % (4.0-6.0)
[2018-05-30] MEDS: ATORVASTATIN 80 MG TAB PO SCH (20:37)
[2018-05-31 06:21] LABS: Anion Gap 8 mmol/L; Blood Urea Nitrogen 14 mg/dL (9-20); Calcium 9.1 mg/dL (8.4-10.2); Carbon Dioxide 24 mmol/L (22-30); Chloride 106 mmol/L (98-107); Glucose 126 mg/dL (74-99); Magnesium 1.9 mg/dL (1.6-2.3); Potassium 4.4 mmol/L (3.5-5.1); Sodium 138 mmol/L (137-145)
[2018-05-31 08:17] VITALS: RESP 14
[2018-05-31] MEDS: ASPIRIN 81 MG PO SCH (09:22)
[2018-05-31] MEDS: FAMOTIDINE 20 MG TAB PO SCH (09:23)
[2018-05-31] MEDS: ENOXAPARIN 40 MG/0.4 ML SYRINGE SQ SCH (09:23)
[2018-05-31] MEDS: LISINOPRIL 2.5 MG TAB PO SCH (09:23)
[2018-05-31] MEDS: METOPROLOL TARTRATE 25 MG TAB PO SCH (09:24)
[2018-05-31] MEDS: SENNOSIDES 8.6 MG TAB PO SCH (09:24)
[2018-05-31] MEDS: TICAGRELOR 90 MG TAB PO SCH (09:24)
[2018-05-31 11:49] VITALS: BP 112/68; PULSE 81; TEMP 97.8
--- NOTE | 2018-05-31 12:12 | P.DS ---
Providers Date of admission: 05/29/18 10:18 Expected date of discharge: 05/31/18 Attending physician: Zoraida Barajas Consults: 05/29/18 10:17 Consult Physician Stat Consulting Provider: Anjelica Giron Consult Reason/Comments: STEMI, Syncope Do you want consulting provider notified?: Already Contacted 05/29/18 12:11 Consult Physician Routine Consulting Provider: [facility] Consult Reason/Comments: Post Interventional patient Do you want consulting provider notified?: Already Contacted 05/29/18 13:02 Consult Physician Routine Consulting Provider: Zahra Hernandez Consult Reason/Comments: wound suturing Do you want consulting provider notified?: Yes Primary care physician: [facility] Course: This is a 68-year-old pleasant gentleman patient of Dr. Sahu. He has underlying history of renal calculi, less than by Dr. Sahu in June 2017, no prior history of CAD in the past hyperlipidemia, hyperglycemia, osteoarthritis, BPH without lower tract symptomatology, admitted to the emergency room secondary to chest discomfort while exercising. Patient also has syncopal event at that time, she says he sustained laceration of face, in emergency room his EKG showed ST segment elevation, patient denies any previous history of [place] in the past no history of seizures no history of syncope in the past. Patient has no PND or orthopnea no edema. In the emergency room EKG shows sinus mechanism heart rate [address] segment elevation in leads 1 and aVL and leads V4 V5 with ST segment depression in the inferior anterior leads consistent with anterolateral Myocardial faction. He was pale, diaphoretic, hypotensive, Patient was subsequently directed to the cardiac lab for emergent cardiac catheterization, Dr. Giron proceeded with the coronary intervention Findings of cardiac Shows occluded first obtuse marginal branch, requiring stenting of a 99% occluded first obtuse marginal branch with reduction of stenosis from 99% to 0, also successful stenting of the mid right coronary artery from 85% stenosis to 0 patient was placed on aspirin during that RAJIV inhibitor and statin patient currently is transferred to ICU procedure done on Dr. Giron 05/30: Repeat laboratory shows a hemoglobin of 14.4, white count is 11.5, creatinine 0.61, blood sugars 121-181. Triglycerides 140, cholesterol 150, LDL 94 and HDL 28. Brilinta coverage is being checked by special education case manager. Patient denies having any chest pain or shortness of breath. Discussed following a diabetic diet which patient is willing to do. Metformin will be started tomorrow evening. Patient was seen by Dr. Hernandez and Steri-Strips applied to the cheek avulsion was no plan for suturing. 05/31: Patient denies any chest pain or shortness of breath. No lightheadedness or dizziness. Patient states he has walked in the hallway. His blood sugars highest 150 and we will plan to start metformin at home at 500 mg at supper daily. Patient instructed to obtain glucometer when he follows up with Dr. Sahu in the office. Electrolytes are within normal limits, creatinine 0.83. He has been afebrile, heart rate running in the 80s and 90s, blood pressure 112/ 68, pulse ox 96% on room air. Patient will be discharged home today once cleared by cardiology. Discharge diagnoses: 1. Acute STEMI involving anterolateral leads with occluded mid RCA, 85% and first obtuse marginal branch 99% with successful stenting on both vessels 2. Diabetes mellitus type 2 with hemoglobin A1c of 7.7, new diagnosis. 3. Hypertension 4. BPH 5. History of nephrolithiasis asymptomatic 6. Hyperlipidemia 7. Laceration of face secondary to syncope, facial contusion, Dr. Hernandez, Steri- Strips. 8. Syncope most likely secondary to cardiac arrhythmia Discharge plan: home Impression and plan of care have been directed as dictated by the signing physician. Luisa Bolaños nurse practitioner acting as scribe for signing physician. Patient Condition at Discharge: Good Plan - Discharge Summary New Discharge Prescriptions: New Aspirin 81 mg PO DAILY chew Atorvastatin [Lipitor] 80 mg PO HS #30 tab Famotidine [Pepcid] 20 mg PO DAILY tab Lisinopril [Zestril] 2.5 mg PO BID #60 tab metFORMIN HCL [Glucophage Xr] 500 mg PO W/SUPPER #30 tab Metoprolol Tartrate [Lopressor] 25 mg PO BID #60 tab Nitroglycerin Sl Tabs [Nitrostat] 0.4 mg SUBLINGUAL Q5M PRN #25 tab PRN Reason: Chest Pain Ticagrelor [Brilinta] 90 mg PO BID #60 tab Discharge Medication List Aspirin 81 mg PO DAILY chew 05/31/18 [Rx] Atorvastatin [Lipitor] 80 mg PO HS #30 tab 05/31/18 [Rx] Famotidine [Pepcid] 20 mg PO DAILY tab 05/31/18 [Rx] Lisinopril [Zestril] 2.5 mg PO BID #60 tab 05/31/18 [Rx] Metoprolol Tartrate [Lopressor] 25 mg PO BID #60 tab 05/31/18 [Rx] Nitroglycerin Sl Tabs [Nitrostat] 0.4 mg SUBLINGUAL Q5M PRN #25 tab 05/31/18 [Rx ] Ticagrelor [Brilinta] 90 mg PO BID #60 tab 05/31/18 [Rx] metFORMIN HCL [Glucophage Xr] 500 mg PO W/SUPPER #30 tab 05/31/18 [Rx] Follow up Appointment(s)/Referral(s): Anjelica Giron MD [STAFF PHYSICIAN] - 06/07/18 2:30 pm Dalton Sahu MD [Primary Care Provider] - 1 Week Activity/Diet/Wound Care/Special Instructions: pts Brillinta is $43.50/mo. Pt was supplied a coupon Discharge Disposition: HOME SELF-CARE
--- NOTE | 2018-05-31 15:16 | PN ---
PROGRESS NOTE Mr. Baez is a 68-year-old male who presented with an acute myocardial infarction, underwent stenting of the left circumflex and the right coronary artery. He is doing well this morning, ambulating without difficulty, denying any chest pain. He denies any dizziness, palpitation. Denies any nausea. He continues to be on aspirin once a day, Lipitor 80 mg daily, lisinopril 2.5 mg twice a day, metformin 850 mg daily, metoprolol tartrate 25 mg daily, Brilinta 90 mg twice a day. PHYSICAL EXAMINATION: Blood pressure 112/60 with a heart rate in the 80s. LUNGS: Clear. HEART: Regular rate and rhythm, S1, S2. No S3. No rub. ABDOMEN: Soft, nontender. EXTREMITIES: No edema. LAB DATA: Revealed BUN and creatinine of 14 and 0.8, potassium 4.4. IMPRESSION: 1. Status post myocardial infarction and stenting of the right coronary artery and the left circumflex. 2. Hypertension. 3. Hyperlipidemia. RECOMMENDATION: Patient should be able to be discharged home today and followed as an outpatient in 1 week. MMODL / IJN: [id number] /
[2018-05-31] MEDS ORDERED: metFORMIN 850 MG TAB PO SCH (17:30)
== END 2018-05-31 17:22 | disposition home or self-care (01) | DRG 247 ==
LOC: EC 09:52 → 2SICU 10:18 → 3SCARD 05-30 23:33
PROVIDERS: ADMIT Internal Medicine; ATTEND Internal Medicine
PROC: 027135Z Dilation of Coronary Artery, Two Arteries with Two Drug-eluting Intraluminal Devices, Percutaneous Approach (ICD-10-PCS; principal; 2018-05-29 10:35)
PROC: 4A023N7 Measurement of Cardiac Sampling and Pressure, Left Heart, Percutaneous Approach (ICD-10-PCS; 2018-05-29 10:35)
PROC: B2111ZZ Fluoroscopy of Multiple Coronary Arteries using Low Osmolar Contrast (ICD-10-PCS; 2018-05-29 10:35)
DX: I21.09 ST elevation (STEMI) myocardial infarction involving other coronary artery of anterior wall (principal); I47.2 Ventricular tachycardia; I95.9 Hypotension, unspecified; E11.65 Type 2 diabetes mellitus with hyperglycemia; I25.10 Atherosclerotic heart disease of native coronary artery without angina pectoris; I25.84 Coronary atherosclerosis due to calcified coronary lesion; N40.0 Benign prostatic hyperplasia without lower urinary tract symptoms; E78.5 Hyperlipidemia, unspecified; I10 Essential (primary) hypertension; R00.1 Bradycardia, unspecified; R55 Syncope and collapse; S01.411A Laceration without foreign body of right cheek and temporomandibular area, initial encounter; W17.89XA Other fall from one level to another, initial encounter; Y93.A1 Activity, exercise machines primarily for cardiorespiratory conditioning; Y92.39 Other specified sports and athletic area as the place of occurrence of the external cause; Z87.891 Personal history of nicotine dependence; Z87.442 Personal history of urinary calculi; Z83.3 Family history of diabetes mellitus; Z82.49 Family history of ischemic heart disease and other diseases of the circulatory system
CPT/HCPCS: 36415; 70460; 71045; 80048; 80053; 80061; 82550; 82553; 83036; 83735; 84100; 84484; 85025; 85347; 85610; 85730; 93005; 93306; 93458; 96372; 96374; 96375; 99285; C1874

== ENCOUNTER → 2018-07-20 | Outpatient (CLI) | payer MEDICARE ==
[2018-07-20 12:27] LABS: Albumin 4.4 g/dL (3.80-4.90); Albumin/Globulin Ratio 2.1 (1.60-3.17); Anion Gap 9.9 mmol/L (4.00-12.00); Calcium 9.5 mg/dL (8.7-10.3); Carbon Dioxide 26.1 mmol/L (21.6-31.8); Globulin 2.1 g/dL (1.6-3.3); LDL Cholesterol,Calculated 43.6 mg/dL (0.0-131.0); Potassium 3.8 mmol/L (3.5-5.5); Total Bilirubin 1.2 mg/dL (0.2-1.2); Total Protein 6.5 g/dL (6.2-8.2); VLDL Calculation 19.4 mg/dL (5.00-40.00)
== END | disposition home or self-care (01) ==
LOC: LABWHC1 07:10
PROVIDERS: ATTEND Internal Medicine Interventional Cardiology
DX: E78.2 Mixed hyperlipidemia (principal)
CPT/HCPCS: 36415; 80053; 80061

== ENCOUNTER → 2018-07-20 | Outpatient (CLI) | payer MEDICARE ==
--- NOTE | 2018-07-26 11:51 | P.ARTDOP ---
Arterial Doppler LOWER EXTREMITY ARTERIAL DOPPLER: DATE OF SERVICE: 07/20/2018 Reason for study: Pain left leg. Doppler waveforms: Multiphasic bilaterally throughout. Pulse volume recording: Normal configuration throughout. Pressure gradients: None Ankle-brachial indices: Greater than 1 bilaterally Toe pressures: 90 on the right, 108on the left impression: Normal study.
== END ==
LOC: RADUSWWP 07:12
PROVIDERS: ATTEND Internal Medicine Geriatric Medicine
DX: M79.10 Myalgia, unspecified site (principal); M79.662 Pain in left lower leg
CPT/HCPCS: 93923

== ENCOUNTER → 2019-02-22 | Outpatient (CLI) | payer MEDICARE ==
[2019-02-23 05:57] LABS: Chol/HDL Ratio 2.86; LDL Cholesterol,Calculated 51.6 mg/dL (0.0-131.0); VLDL Calculation 15.4 mg/dL (5.00-40.00)
== END | disposition home or self-care (01) ==
LOC: LABWHC1 07:46
PROVIDERS: ATTEND Nurse Practitioner Adult Health
DX: E78.2 Mixed hyperlipidemia (principal)
CPT/HCPCS: 36415; 80061; 84450; 84460

== ENCOUNTER → 2019-03-29 | Outpatient (CLI) | payer MEDICARE ==
--- NOTE | 2019-03-29 08:56 | XR ---
EXAMINATION TYPE: XR KUB DATE OF EXAM: 03/29/2019 HISTORY: Pain Comparison: None.Single KUB is submitted for interpretation. Findings: Right renal calculi: Right renal calculus measures 3.4 mm. Additional calculi may be present. Right ureteral calculi: None Visualized. Left renal calculi: Multiple left-sided renal calculi with largest stone upper pole measuring 1.4 cm . Left ureteral calculi: Left UPJ calculus measuring 9.4 mm transverse dimension. Additional calcific density at the approximate S3/S4 level measuring 5 mm. This may reflect additional ureteral calculus. Pelvic calcifications: None Visualized. Bowel gas pattern is unremarkable. No free air. No mass effects. IMPRESSION: 1. Left-sided nephrolithiasis and left-sided ureterolithiasis as noted.
== END | disposition home or self-care (01) ==
LOC: RADXRMAIN 08:20
PROVIDERS: ATTEND Urology
DX: N20.2 Calculus of kidney with calculus of ureter (principal)
CPT/HCPCS: 74018

== ENCOUNTER → 2019-06-04 | Outpatient (CLI) | payer MEDICARE ==
--- NOTE | 2019-06-04 07:44 | XR ---
EXAMINATION TYPE: XR KUB DATE OF EXAM: 06/04/2019 CLINICAL DATA: 69-year-old male N20.0, left-sided renal stone, [facility] COMPARISON: 03/29/2019 FINDINGS: Nonobstructive bowel gas pattern. Mild stool burden. Clustered calcifications upper pole left kidney unchanged with aggregate dimension measuring up to 2. 3 cm. Previously seen 9 mm calculus left paramedian mid abdomen no longer identified. Nonobstructive left lower pole renal calculus measuring up to 4 mm. Vascular calcifications in the pelvis and left-sided pelvic phleboliths are unchanged. IMPRESSION: Left-sided nephrolithiasis redemonstrated. Posterior calcifications upper pole left kidney are simila r with aggregate dimension measuring up to 2.3 cm. Previous left paramedian mid abdominal 9 mm urinar y tract calculus is no longer seen.
== END | disposition home or self-care (01) ==
LOC: RADXRMAIN 07:17
PROVIDERS: ATTEND Urology
DX: N28.89 Other specified disorders of kidney and ureter (principal); N20.0 Calculus of kidney
CPT/HCPCS: 74018

== ENCOUNTER → 2019-11-01 | Outpatient (CLI) | payer MEDICARE ==
[2019-11-01 09:07] LABS: HCT 42.6 % (39.0-53.0); HGB 14.2 gm/dL (13.0-17.5); MCH 32.6 pg (25.0-35.0); MCHC 33.3 g/dL (31.0-37.0); Mean Platelet Volume 8.2; Platelet Count 189 k/uL (150-450); RBC 4.35 m/uL (4.30-5.90); WBC 7.5 k/uL (3.8-10.6)
[2019-11-01 09:14] LABS: African American GFR (CKD) >90 (>60 ml/min/1.73 sqM); Anion Gap 8 mmol/L; Blood Urea Nitrogen 16 mg/dL (9-20); Carbon Dioxide 26 mmol/L (22-30); Chloride 106 mmol/L (98-107); Glucose 139 mg/dL (74-99); Non-African American GFR(CKD) >90 (>60 ml/min/1.73 sqM); Potassium 4.4 mmol/L (3.5-5.1); Sodium 140 mmol/L (137-145)
== END | disposition home or self-care (01) ==
LOC: LABPAT 07:39
PROVIDERS: ATTEND Internal Medicine Interventional Cardiology
DX: Z01.818 Encounter for other preprocedural examination (principal); I25.10 Atherosclerotic heart disease of native coronary artery without angina pectoris; I10 Essential (primary) hypertension
CPT/HCPCS: 36415; 80051; 82565; 82947; 84520; 85027

== ENCOUNTER 2019-11-09 06:06 | Day surgery (SDC) | payer MEDICARE ==
[2019-11-07 14:57] VITALS: BMI 27.3
[~2019-11-09 06:06] MED LIST: ALPRAZolam 0.25 MG TAB PO PRN; ALPRAZolam 0.5 MG TAB PO PRN; NITROGLYCERIN SL TABS 0.4 MG TAB SUBLINGUAL PRN; SODIUM CHLORIDE 0.9% 1,000 ML in EMPTY BAG 1 BAG IV ONE
[2019-11-09] MEDS ORDERED: SODIUM CHLORIDE 0.9% 1,000 ML IV ONE (06:25)
[2019-11-09 06:36] LABS: Glucose,Whole Blood 156 mg/dL (75-99)
[2019-11-09] MEDS ORDERED: ATORVASTATIN 80 MG TAB PO ONE (07:00)
[2019-11-09] MEDS ORDERED: ASPIRIN 325 MG TAB PO ONE (07:00)
[2019-11-09] MEDS ORDERED: LIDOCAINE 1% INJ 10MG/ML (20 ML MDV) ONE (07:21)
[2019-11-09] MEDS ORDERED: HEPARIN SODIUM 1,000 UN/ML (10ML VL) ONE (07:22)
[2019-11-09] MEDS ORDERED: fentaNYL (PF) 50 MCG/ML 2 ML AMP ONE (07:22)
[2019-11-09] MEDS ORDERED: VERAPAMIL 2.5 MG/ML 2 ML AMP ONE (07:22)
[2019-11-09] MEDS ORDERED: fentaNYL (PF) 50 MCG/ML 2 ML AMP IVP ONE (07:38)
[2019-11-09] MEDS ORDERED: LIDOCAINE 1% INJ 10MG/ML (20 ML MDV) SQ ONE (07:44)
[2019-11-09] MEDS ORDERED: VERAPAMIL SYRINGE (5 MG/10 ML) INTRAARTER ONE (07:47)
[2019-11-09] MEDS ORDERED: CLOPIDOGREL 75 MG TAB ONE (07:54)
[2019-11-09] MEDS ORDERED: BIVALIRUDIN BOLUS 250 MG/50 ML IV ONE (07:57)
[2019-11-09] MEDS ORDERED: IOPAMIDOL-370 100ML BTL INJ ONE ×4 (07:57→09:55)
[2019-11-09] MEDS ORDERED: BIVALIRUDIN 250 MG in SODIUM CHLORIDE 0.9% 50 ML IV ONE ×2 (07:58→08:50)
[2019-11-09] MEDS ORDERED: CLOPIDOGREL 75 MG TAB PO ONE (07:58)
[2019-11-09] MEDS ORDERED: NITROGLYCERIN 1000MCG/10ML SYRINGE INTRACORON ONE (09:29)
[2019-11-09] MEDS ORDERED: RX INFO: IV CONTRAST WAS GIVEN 1 EACH MISC MISCELLANE PRN (10:13)
[2019-11-09] MEDS ORDERED: NITROGLYCERIN SL TABS 0.4 MG TAB SUBLINGUAL PRN (10:13)
[2019-11-09] MEDS ORDERED: MAG HYDROX/AL HYDROX/SIMETH 30 ML CUP PO PRN (10:13)
[2019-11-09] MEDS ORDERED: ZOLPIDEM 5 MG TAB PO PRN (10:13)
[2019-11-09] MEDS ORDERED: ATROPINE SULFATE 0.1 MG/ML 10ML SYRINGE IV PRN (10:13)
[2019-11-09] MEDS ORDERED: SODIUM CHLORIDE 0.9% 1,000 ML IV SCH (10:15)
--- NOTE | 2019-11-09 10:49 | PTCA ---
PERCUTANEOUSTRANS CORORONARY ANGIOGRAPHY Mr. Baez is a 69-year-old male with known history of coronary artery disease, hypertension, hyperlipidemia, diabetes mellitus, who has been having symptoms of dyspnea on exertion, underwent cardiac catheterization, was found to have a totally occluded right coronary artery. In view of that, recommendation regarding angioplasty and stenting, the procedures, risks, and complication were discussed with the patient who is in full understanding and agreement. PROCEDURE: A 6-Faroese FR4 guiding catheter in the system was and after cannulating the ostium of the right coronary artery, attempt to cross the lesion using a 0.014 balanced medium weight J-wire was unsuccessful. That wire was removed and a 0.014 Whisper J-wire with the help of a straight FineCross were unsuccessful in crossing the lesion as well. At that point, the wire, the guiding catheter were removed and a 6-Faroese AL 1 guiding catheter introduced in the system and the whisper JR wire with a 45 degree FineCross microcatheter were introduced and with the help with that wire, there was ability to cross the true lumen and position the wire distally. Subsequently, attempt to advance a 1.5 x 8 and 1.5 x 6 trek balloon were unsuccessful. The balloon were removed and attempt to advance the straight Fine Cross was unsuccessful as well. At that point, a FineCross was removed and a 1.2 x 6 mm Trek balloon was advanced with difficulty across the lesion. Multiple inflations maximum of 10 atmospheres were done. From that,. the balloon was advanced distally and the wire was exchanged through the balloon to a BMW J- wire. Following that, the balloon was removed and a 1.5 x 8 mm Trek balloon was advanced and multiple inflation at 10 atmospheres were done. Following that, the balloon was removed and a 2.5 x 12 mm Trek balloon was advanced and multiple inflation at 8 atmospheres were done. Following that, the balloon was removed and a 2.5 x 23 mm Xience Arlene stent was deployed,positioned, deployed and post dilated at 16 atmospheres following that the balloon was removed and a 2.5 x 15 mm Xience Arlene stent was deployed proximal to the first one and postdilated at 16 atmospheres and following that a 2.75 x 15 mm NC Trek balloon was advanced and inflation in the stented segment were done at maximum 14 atmospheres. Following that, the balloon was removed and a 2.5 x 12 mm Xience stent was deployed distal to the first stent and post-dilated at 16 atmospheres. Following that, a 3.0 x 15 mm emerge NC balloon was advanced and multiple inflations throughout the stented segment maximum 14 atmospheres were done. After the last inflation, after appropriate wait, the balloon and the guidewire were withdrawn back in the guiding catheter. Images were obtained repeated. Those images reveal stable successful stenting. At that point, the guiding catheter, the balloon and the guidewire were removed. The sheath was removed, hemostasis was obtained with deployment of a TR band. There was no immediate complication. Patient is returned to his room in stable condition. Of note, patient received Angiomax per protocol as well as oral loading dose of clopidogrel. He had mild chest discomfort during the inflation that resolved at the end procedure. There was no significant EKG changes. RESULTS: Successful stenting of the proximal and mid right coronary artery with reduction of stenosis from 100% to 0%. RECOMMENDATION: Patient will be continued on aspirin, Plavix and statin. The importance of dual antiplatelet treatment were discussed with the patient and his family and they are in full understanding and agreement. Duration of procedure is 131 minutes. MMODL / IJN: [id number] /
--- NOTE | 2019-11-09 10:55 | LTR ---
DATE OF SERVICE: 11/09/2019 RE: Ryan Baez Dear Dr. Sahu; I had the pleasure to perform cardiac catheterization on Mr. Baez at [facility] on November 09, 2019 and a full copy of the procedure note will be forwarded to you. In brief, he was found to have a totally occluded proximal mid right coronary artery, underwent successful stenting of that vessel. I am hopeful that this procedure will stabilize his status and thank you again for allowing me to participate in this patient's care. Please feel free to call for any questions. Sincerely yours, MD JEAN PIERRE Ponce / SMILEYN: [phone] /
--- NOTE | 2019-11-09 11:16 | CC ---
CARDIAC CATHETERIZATION REPORT Mr. Baez is a 69-year-old male with known history of coronary artery disease, hypertension, hyperlipidemia, diabetes mellitus, status post stenting in 2019. Recently he has been complaining of progressive dyspnea and had evidence of stress- induced ischemia involving the inferoseptal wall. In view of that, recommendation made regarding cardiac catheterization. The procedures, risks, and complications were discussed with the patient, who is in full understanding and agreement. PROCEDURE: Patient was brought to [facility] in the fasting semi-sedated state after receiving fentanyl and Benadryl and achieving moderate conscious sedated state. Using Xylocaine anesthesia and Seldinger technique, a 6-Hungarian sheath was introduced in the right radial artery. Selective right and left coronary angiography performed using 5-Hungarian 3.5 bend right and left Cathryn catheter. Multiple views of the coronary artery including hemiaxial views were obtained. Following that, angioplasty and stenting was performed. The aortic valve was crossed using a guiding catheter and left ventricular end-diastolic pressure was calculated. There was no immediate complication. FINDINGS: LEFT MAIN: This is a short size vessel, bifurcating into left circumflex and left anterior descending artery. Left main coronary artery has no significant obstructive disease. LEFT ANTERIOR DESCENDING ARTERY: This is a large-sized vessel, reaching toward the apex, calcified in the proximal segment, has a tubular 50% stenosis. It gives rise to a diagonal branch that are small in caliber, have no evidence of high-grade stenosis. The LAD has diffuse intimal disease without high-grade stenosis in the mid segment. LEFT CIRCUMFLEX: This is a large nondominant vessel, giving rise to a large obtuse marginal branch proximally. The left circumflex has 20% to 30% plaque. The stented segment in the obtuse marginal branch is patent with no significant in-stent restenosis. RIGHT CORONARY ARTERY: This vessel is dominant. It is subtotally occluded proximally with minimal antegrade flow. The occlusion is proximal to the stented segment. There is retrograde flow into the right coronary artery from collateral from the left coronary system. LEFT VENTRICULOGRAM: Left ventriculogram was not performed. HEMODYNAMICS: There was no gradient across the aortic valve. The ventricular end- diastolic pressure was 20-24 mmHg. CONCLUSION: 1. Occluded right coronary artery proximal to the prior stented segment. 2. Patent stent to the obtuse marginal branch. 3. Mild disease in the proximal LAD and calcified vessel. RECOMMENDATION: In view of finding anatomy, I recommend proceeding with angioplasty and stenting of the right coronary artery. The procedures, risks, and complication were discussed with the patient, who is in full understanding and agreement. MMODL / IJN: [id number] /
[2019-11-09 16:50] LABS: Glucose,Whole Blood 115 mg/dL (75-99)
[2019-11-09] MEDS ORDERED: ATORVASTATIN 40 MG TAB PO SCH (21:00)
[2019-11-09] MEDS: METOPROLOL TARTRATE 25 MG TAB PO SCH (21:31)
[2019-11-10 06:39] VITALS: RESP 16
[2019-11-10 07:10] LABS: African American GFR (CKD) >90 (>60 ml/min/1.73 sqM); Anion Gap 5 mmol/L; Blood Urea Nitrogen 11 mg/dL (9-20); Calcium 8.8 mg/dL (8.4-10.2); Carbon Dioxide 26 mmol/L (22-30); Chloride 108 mmol/L (98-107); Glucose 106 mg/dL (74-99); Non-African American GFR(CKD) >90 (>60 ml/min/1.73 sqM); Sodium 139 mmol/L (137-145)
[2019-11-10 07:24] LABS: Glucose,Whole Blood 110 mg/dL (75-99)
[2019-11-10] MEDS: METOPROLOL TARTRATE 25 MG TAB PO SCH (07:50)
[2019-11-10] MEDS ORDERED: CLOPIDOGREL 75 MG TAB PO SCH (09:00)
[2019-11-10] MEDS ORDERED: FAMOTIDINE 20 MG TAB PO SCH (09:00)
[2019-11-10] MEDS ORDERED: ASPIRIN 81 MG PO SCH (09:00)
[2019-11-10 09:26] VITALS: PULSE 80
[2019-11-10 09:52] VITALS: BP 151/75; TEMP 98
--- NOTE | 2019-11-10 11:08 | PN ---
PROGRESS NOTE Mr. Baez is a 69-year-old male with a known history of coronary artery disease who recently has been complaining of episode of chest discomfort and abnormal myocardial perfusion imaging, underwent cardiac catheterization, was found to have an occluded right coronary artery. He underwent revascularization of that vessel. He is doing well this morning, ambulating without difficulty, denying any dizziness or palpitation. He denies any nausea. He continues to be in sinus mechanism. He continues to be on aspirin once a day, Plavix 75 mg daily, Lipitor 40 mg daily, lisinopril 2.5 mg twice a day, metoprolol 25 mg twice a day. PHYSICAL EXAMINATION: Blood pressure 130/70 with a heart rate in the 60s. LUNGS: Clear. HEART: Regular rate and rhythm. S1, S2. No S3. No rub. ABDOMEN: Soft, nontender. EXTREMITIES: No edema. Right radial pulse intact. LAB DATA: Revealed a BUN and creatinine of 11 and 0.65, potassium 4.0. IMPRESSION: 1. Status post stenting of the right coronary artery. 2. Status post stenting of the left circumflex obtuse marginal branch, patent. 3. Hypertension. 4. Hyperlipidemia. 5. Diabetes mellitus. RECOMMENDATION: Patient will be discharged home today and resume his metformin in 48 hours. He will be followed as an outpatient. Those findings and recommendation were discussed with the patient. He is in full understanding and agreement. MMODL / IJN: [id number] /
== END 2019-11-10 11:56 | disposition home or self-care (01) ==
LOC: CATHCVL 06:06 → 3NCARDOBS 14:34 → CATHCVL 11-10 11:56
PROVIDERS: ATTEND Internal Medicine Interventional Cardiology
DX: I25.10 Atherosclerotic heart disease of native coronary artery without angina pectoris (principal); I25.82 Chronic total occlusion of coronary artery; R06.09 Other forms of dyspnea; R07.89 Other chest pain; R94.39 Abnormal result of other cardiovascular function study; I10 Essential (primary) hypertension; E11.9 Type 2 diabetes mellitus without complications; E78.5 Hyperlipidemia, unspecified; E78.00 Pure hypercholesterolemia, unspecified; Z95.5 Presence of coronary angioplasty implant and graft; Z87.891 Personal history of nicotine dependence; Z79.82 Long term (current) use of aspirin; Z79.02 Long term (current) use of antithrombotics/antiplatelets; Z79.899 Other long term (current) drug therapy; Z79.84 Long term (current) use of oral hypoglycemic drugs; Z82.49 Family history of ischemic heart disease and other diseases of the circulatory system
CPT/HCPCS: 93458; 85347; 80048; C9600; C1769 ×2; C1887 ×3; C1725 ×5; C1874; J2001; J3010; J0583; Q9967

== ENCOUNTER → 2020-06-09 | Outpatient (CLI) | payer MEDICARE ==
[2020-06-09 15:55] LABS: Chol/HDL Ratio 3.43; LDL Cholesterol,Calculated 49.4 mg/dL (0.0-131.0); VLDL Calculation 18.6 mg/dL (5.00-40.00)
== END | disposition home or self-care (01) ==
LOC: LABWHC1 08:04
PROVIDERS: ATTEND Nurse Practitioner Adult Health
DX: E78.2 Mixed hyperlipidemia (principal)
CPT/HCPCS: 36415; 80061; 84450; 84460

== ENCOUNTER → 2022-03-16 | Outpatient (CLI) | payer MEDICARE ==
[2022-03-16 11:17] LABS: ALT 15 U/L (10-49); AST 18 U/L (14-35); African American GFR (CKD) 104.1 (60.0-200.0); Albumin 4.1 g/dL (3.8-4.9); Albumin/Globulin Ratio 1.46 (1.60-3.17); Alkaline Phosphatase 97 U/L (41-126); BUN/Creat Ratio 20.35 Ratio (12.00-20.00); Blood Urea Nitrogen 16.3 mg/dL (9.0-27.0); Calcium 9.5 mg/dL (8.7-10.3); Carbon Dioxide 22.2 mmol/L (20.0-27.5); Chloride 104 mmol/L (96-109); Globulin 2.8 g/dL (1.6-3.3); Glucose 100 mg/dL (70-110); LDL Cholesterol,Calculated 43.8 mg/dL (0.0-131.0); Non-African American GFR(CKD) 89.8 (60.0-200.0); Potassium 4.1 mmol/L (3.5-5.5); Sodium 139 mmol/L (135-145); VLDL Calculation 15.94 mg/dL (5.00-40.00)
== END | disposition home or self-care (01) ==
LOC: LABWHC1 07:27
PROVIDERS: ATTEND Internal Medicine Interventional Cardiology
DX: E78.2 Mixed hyperlipidemia (principal)
CPT/HCPCS: 36415; 80053; 80061

== ENCOUNTER → 2022-05-06 | Outpatient (CLI) | payer MEDICARE ==
[2022-05-06 15:45] LABS: African American GFR (CKD) 88.1 (60.0-200.0); Anion Gap 12.2 mmol/L (10.00-18.00); BUN/Creat Ratio 20.64 Ratio (12.00-20.00); Blood Urea Nitrogen 20.5 mg/dL (9.0-27.0); Calcium 10.3 mg/dL (8.7-10.3); Carbon Dioxide 23.2 mmol/L (20.0-27.5)
== END | disposition home or self-care (01) ==
LOC: LABWHC1 07:01
PROVIDERS: ATTEND Nurse Practitioner Adult Health
DX: I10 Essential (primary) hypertension (principal)
CPT/HCPCS: 36415; 80048

== ENCOUNTER → 2023-03-22 | Outpatient (CLI) | payer MEDICARE ==
[2023-03-22 16:49] LABS: ALT 19 U/L (10-49); AST 13 U/L (14-35); Chol/HDL Ratio 2.38 Ratio; LDL Cholesterol,Calculated 43.7 mg/dL (0.0-131.0)
== END | disposition home or self-care (01) ==
LOC: LABWHC1 07:57
PROVIDERS: ATTEND Internal Medicine Interventional Cardiology
DX: E78.2 Mixed hyperlipidemia (principal)
CPT/HCPCS: 36415; 80061; 84450; 84460

== ENCOUNTER → 2023-09-14 | Outpatient (CLI) | payer MEDICARE ==
[2023-09-14 10:46] LABS: BUN/Creat Ratio 18.12 Ratio (12.00-20.00); Blood Urea Nitrogen 14.5 mg/dL (9.0-27.0); Chloride 105 mmol/L (96-109); Chol/HDL Ratio 2.55 Ratio; Glucose 120 mg/dL (70-110); LDL Cholesterol,Calculated 40.9 mg/dL (0.0-131.0); Potassium 4.2 mmol/L (3.5-5.5); Sodium 139 mmol/L (135-145)
[2023-09-14 10:47] LABS: ALT 16 U/L (10-49); AST 18 U/L (14-35); Albumin 4.2 g/dL (3.8-4.9); Albumin/Globulin Ratio 1.91 Ratio (1.60-3.17); Alkaline Phosphatase 98 U/L (41-126); Calcium 9.2 mg/dL (8.7-10.3); Globulin 2.2 g/dL (1.6-3.3); Total Bilirubin 0.6 mg/dL (0.3-1.2); Total Protein 6.4 g/dL (6.2-8.2)
== END | disposition home or self-care (01) ==
LOC: LABWHC1 07:04
PROVIDERS: ATTEND Internal Medicine Interventional Cardiology
DX: E78.2 Mixed hyperlipidemia (principal)
CPT/HCPCS: 36415; 80053; 80061

== ENCOUNTER → 2024-10-04 | Outpatient (CLI) | payer MEDICARE ==
[2024-10-04 10:27] LABS: ALT 17 U/L (10-49); AST 16 U/L (14-35); Albumin 4.1 g/dL (3.8-4.9); Albumin/Globulin Ratio 1.86 Ratio (1.60-3.17); Alkaline Phosphatase 104 U/L (41-126); BUN/Creat Ratio 20.25 Ratio (12.00-20.00); Blood Urea Nitrogen 16.2 mg/dL (9.0-27.0); Calcium 9.1 mg/dL (8.7-10.3); Carbon Dioxide 23.7 mmol/L (21.6-31.8); Chloride 106 mmol/L (96-109); Chol/HDL Ratio 2.84 Ratio; Globulin 2.2 g/dL (1.6-3.3); Glucose 133 mg/dL (70-110); LDL Cholesterol,Calculated 42.1 mg/dL (0.0-131.0); Potassium 3.9 mmol/L (3.5-5.5); Sodium 141 mmol/L (135-145); Total Bilirubin 0.5 mg/dL (0.3-1.2); Total Protein 6.3 g/dL (6.2-8.2); VLDL Calculation 18.76 mg/dL (5.00-40.00)
== END | disposition home or self-care (01) ==
LOC: LABWHC1 06:58
PROVIDERS: ATTEND Internal Medicine Interventional Cardiology
DX: E11.3292 Type 2 diabetes mellitus with mild nonproliferative diabetic retinopathy without macular edema, left eye (principal); I25.10 Atherosclerotic heart disease of native coronary artery without angina pectoris; E78.5 Hyperlipidemia, unspecified
CPT/HCPCS: 36415; 80053; 80061